=== PATIENT | female | born 1985 | race Caucasian/White ===

== ENCOUNTER 2018-07-15 21:57 | Emergency (ER) | payer OTHER, SELFPAY ==
[2018-07-15 22:07] VITALS: BP 98/65; PULSE 65; RESP 14; TEMP 36.1; O2SAT 95
[2018-07-15 22:38] LABS: Add Manual Diff / Slide Review NO; Basophils Absolute Auto 100 /uL (0-100); Basophils Percent Auto 0.7 % (0-2); Eosinophils Absolute Auto 100 /uL (0-450); Eosinophils Percent Auto 1.1 % (2-4); Hematocrit 39.2 % (36-46); Hemoglobin 13.1 g/dL (12.0-16.0); Lymphocytes Absolute Auto 2600 /uL (1100-4500); Lymphocytes Percent Auto 30.5 % (25-40); Mean Corpuscular HGB Conc 33.5 % (30-36); Mean Corpuscular Hemoglobin 31.5 PG (26-34); Mean Corpuscular Volume 94.1 fL (80-100); Monocytes Absolute Auto 800 /uL (0-900); Monocytes Percent Auto 8.8 % (3-14); Neutrophils Absolute Auto 5100 /uL (1500-7000); Neutrophils Percent Auto 58.9 % (50-75); Platelet Count 194 X10^3/uL (150-400); Red Blood Cell Count 4.17 X10^6/uL (4.0-5.2); Red Cell Distribution Width 12.6 % (11.6-14.8); White Blood Cell Count 8.6 X10^3/uL (4.5-11.0)
[2018-07-15 22:47] LABS: Alanine Aminotransferase 23 IU/L (9-52); Albumin 4.2 g/dL (3.5-5.0); Albumin Globulin Ratio 1.4 (1.0-2.8); Alkaline Phosphatase 85 U/L (38-126); Amylase 52 U/L (30-110); Aspartate Aminotransferase 68 IU/L (14-36); BUN Creatinine Ratio 13.8 (6-22); Blood Urea Nitrogen 11 mg/dL (7-17); Calcium 9.1 mg/dL (8.4-10.2); Carbon Dioxide 27 mmol/L (22-32); Chloride 101 mmol/L (98-107); Estimated Glomerular Filt Rate > 60.0 mL/min (>60); Globulin 2.9 g/dL (1.7-4.1); Glucose 104 mg/dL (70-100); HEMOLYSIS < 15 (0-50); Lipase 108 U/L (23-300); Potassium 3.9 mmol/L (3.4-5.1); Sodium 138 mmol/L (137-145); Total Protein 7.1 g/dL (6.3-8.2)
[2018-07-15] MEDS: HYDROMORPHONE 1 MG INJ IV (22:56)
[2018-07-15 22:57] VITALS: BP 92/53; PULSE 52; RESP 17; O2SAT 97
--- NOTE | 2018-07-16 00:58 | ED.ABDPAIN ---
HPI - Abdominal Pain General Chief Complaint: Abdominal Pain Stated Complaint: problems with galbladder Time Seen by Provider: 07/15/18 22:00 Source: patient and family Mode of arrival: ambulatory Limitations: no limitations History of Present Illness HPI narrative: 33-year-old female nonsmoker presents to the emergency department with recurrence of RUQ pain with N/V. No fever or chills. Worse with food and drink. Patient has been having episodes of epigastric pain for at least 1 year and has had multiple workups. She was recently referred to the [facility] medical group and had an MRCP which noted choledochal cysts and as a result she has been referred to a general surgeon at [facility] on Monday. Though her pain is been off and on for the better part of a year it has been terrible for the past 48 hours MD complaint: abdominal pain Pain Consistency: constant Location: RUQ Severity scale (1-10): 8 Quality: cramping and stabbing Radiation: none Relieving factors: nothing Exacerbating factors: nothing Associated symptoms: nausea and vomiting Related Data Allergies Allergy/AdvReac Type Severity Reaction Status Date / Time No Known Drug Allergies Allergy Verified 07/15/18 22:14 Review of Systems Constitutional Denies chills, Denies fever(s), Denies lethargy and Denies weakness Eyes Denies change in vision, Denies eye discharge, Denies irritation and Denies loss of vision ENT Ears, Nose, Mouth, and Throat: Denies change in voice, Denies neck pain and Denies sore throat Cardiovascular Denies chest pain, Denies irregular heart rhythm, Denies lightheadedness, Denies palpitations, Denies dyspnea, Denies dyspnea on exertion and Denies orthopnea Respiratory Denies cough, Denies dyspnea, Denies dyspnea on exertion and Denies wheezing Gastrointestinal Gastrointestinal: Reports abdominal pain, Denies change in bowel habits, Denies diarrhea, Reports nausea and Reports vomiting Genitourinary Denies hematuria, Denies flank pain, Denies urinary incontinence and Denies urinary urgency Musculoskeletal Denies neck pain Integumentary/Breasts Denies pruritus, Denies erythema, Denies rash and Denies wounds Neurologic Denies confusion, Denies loss of vision and Denies weakness Psychiatric Denies anxiety, Denies confusion, Denies depression, Denies homicidal ideation and Denies suicidal ideation Endocrine Denies palpitations Hematologic/Lymphatic Denies easy bruising Allergic/Immunologic Denies wheezing [facility] Social History Smoking Status: Current every day smoker Social History Smoking Status: Current every day smoker Exam Narrative Exam Narrative: GENERAL: 33-year-old female obviously quite uncomfortable, rubbing her upper abdomen HEAD: Atraumatic. Normocephalic. No temporal or scalp tenderness. EYES: Pupils equal round and reactive. Extraocular motions intact. No scleral icterus. No injection or drainage. ENT: Nose without bleeding, purulent drainage or septal hematoma. Throat without erythema, tonsillar hypertrophy or exudate. Uvula midline. Airway patent. NECK: Trachea midline. No JVD or lymphadenopathy. Supple, nontender, no meningeal signs. CARDIOVASCULAR: Regular rate and rhythm without murmurs, gallops, or rubs. RESPIRATORY: Clear to auscultation. Breath sounds equal bilaterally. No wheezes, rales, or rhonchi. GASTROINTESTINAL: Abdomen soft, tender epigastrium, nondistended. No hepato-splenomegaly, or palpable masses. No guarding. EXTREMITIES: No clubbing, cyanosis, or edema. No joint tenderness, effusion, or edema noted. BACK: Nontender without deformity or crepitance. No flank tenderness. NEURO: AOx3. SKIN: No rash or erythema. Initial Vital Signs Initial Vital Signs: Vital Signs Temperature 97.0 F L 07/15/18 22:07 Pulse Rate 65 07/15/18 22:07 Respiratory Rate 14 07/15/18 22:07 Blood Pressure 98/65 07/15/18 22:07 Pulse Oximetry 95 07/15/18 22:07 Course Orders Ordered: ED Orders 07/15/18 22:30 Amylase Stat Complete Blood Count AUTO DIFF Stat Comprehensive Metabolic Panel Stat Lipase Stat 07/16/18 01:09 US abdomen limited Stat Discontinued Medications Diphenhydramine HCl (Benadryl) 25 mg IV NOW ONE Stop: 07/16/18 03:12 Last Admin: 07/16/18 03:26 Dose: 25 mg Hydromorphone HCl (Dilaudid) 1 mg IV NOW ONE Stop: 07/15/18 22:51 Last Admin: 07/15/18 22:56 Dose: 1 mg Consultations Consultation #1: Called to GI at [facility]. They are able to access the records and informed me of the patient's underlying diagnosis choledochal cysts Consultation #2: Dr. Snider (Gen Surg) is happy to accept patient Vital Signs - 8 hr 07/15/18 22:57 07/16/18 01:12 Pulse Rate 52 L 54 L Respiratory Rate 17 16 Blood Pressure [Right Arm] 92/53 L Pulse Oximetry 97 96 MDM - Abdominal Pain Lab Data Result diagrams: 07/15/18 22:30 07/15/18 22:30 Lab Results 07/15/18 07/15/18 Range/Units 22:30 22:30 WBC 8.6 (4.5-11.0) X10^3/uL RBC 4.17 (4.0-5.2) X10^6/uL Hgb 13.1 (12.0-16.0) g/dL Hct 39.2 (36-46) % MCV 94.1 (80-100) fL MCH 31.5 (26-34) PG MCHC 33.5 (30-36) % RDW 12.6 (11.6-14.8) % Plt Count 194 (150-400) X10^3/uL Neut % (Auto) 58.9 (50-75) % Lymph % (Auto) 30.5 (25-40) % [place] % (Auto) 8.8 (3-14) % Eos % (Auto) 1.1 L (2-4) % Baso % (Auto) 0.7 (0-2) % Neut # (Auto) 5100 (9855-5191) /uL Lymph # (Auto) 2600 (9590-4598) /uL [place] # (Auto) 800 (0-900) /uL Eos # (Auto) 100 (0-450) /uL Baso # (Auto) 100 (0-100) /uL Sodium 138 (137-145) mmol/L Potassium 3.9 (3.4-5.1) mmol/L Chloride 101 (98-107) mmol/L Carbon Dioxide 27 (22-32) mmol/L BUN 11 (7-17) mg/dL Creatinine 0.80 (0.52-1.04) mg/dL Estimated GFR > 60.0 (>60) mL/min BUN/Creatinine Ratio 13.8 (6-22) Glucose 104 H (70-100) mg/dL Calcium 9.1 (8.4-10.2) mg/dL Total Bilirubin 1.0 (0.2-1.3) mg/dL AST 68 H (14-36) IU/L ALT 23 (9-52) IU/L Alkaline Phosphatase 85 (38-126) U/L Total Protein 7.1 (6.3-8.2) g/dL Albumin 4.2 (3.5-5.0) g/dL Globulin 2.9 (1.7-4.1) g/dL Albumin/Globulin Ratio 1.4 (1.0-2.8) Amylase 52 (30-110) U/L Lipase 108 (23-300) U/L Point of care testing: Point of Care Testing Test Results Negative Urine Dip Bedside Urine Glucose Negative Bedside Urine Bilirubin - Negative Bedside Urine Ketone - Negative Urine Specific [place] 1.015 Bedside Urine Occult Blood - Negative Bedside Urine pH 7.0 Bedside Urine Protein - Negative Bedside Urine Urobilinogen +/- 1mg Bedside Urine Nitrite - Negative Bedside Urine Leukocytes - Negative Esterase Discharge Plan Departure Patient Disposition: [facility] Clinical Impression: Choledochal cyst, Intractable abdominal pain
--- NOTE | 2018-07-16 01:09 | DI.US.S_ITS ---
PROCEDURE: US ABDOMEN LIMITED INDICATIONS: RIGHT UPPER QUADRANT PAIN TECHNIQUE: Real-time focused scanning was performed of the abdomen, with image documentation. COMPARISON: None. FINDINGS: Gallbladder is distended. Multiple gallstones are identified. No definite gallbladder wall thickening. No definite pericholecystic fluid. Probable choledochal cyst measuring up to 1.4 cm is noted possibly involving the common hepatic duct. The right and left intra-hepatic ducts are mildly dilated to 3 mm and 6 mm, respectively. Common bile duct measures approximately 6 mm. No sonographic Hamm sign. The visualized liver is normal. IMPRESSION: 1. Cholelithiasis without definite evidence of cholecystitis. 2. 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 3. Mild proximal right and left intrahepatic ductal dilatation. Recommend correlation with laboratory data to exclude biliary obstruction. Dictated by: Della Jernigan MD, PhD on 07/16/2018 at 10:01 Approved by: Della Jernigan MD, PhD on 07/16/2018 at 10:05
[2018-07-16 01:12] VITALS: PULSE 54; RESP 16; O2SAT 96
--- NOTE | 2018-07-16 01:35 | ED_ITS ---
HPI - Abdominal Pain General Chief Complaint: Abdominal Pain Stated Complaint: problems with galbladder Time Seen by Provider: 07/15/18 22:00 Source: patient and family Mode of arrival: ambulatory Limitations: no limitations History of Present Illness HPI narrative: 33-year-old female nonsmoker presents to the emergency department with recurrence of RUQ pain with N/V. No fever or chills. Worse with food and drink. Patient has been having episodes of epigastric pain for at least 1 year and has had multiple workups. She was recently referred to the [facility] medical group and had an MRCP which noted choledochal cysts and as a result she has been referred to a general surgeon at [facility] on Monday. Though her pain is been off and on for the better part of a year it has been terrible for the past 48 hours MD complaint: abdominal pain Pain Consistency: constant Location: RUQ Severity scale (1-10): 8 Quality: cramping and stabbing Radiation: none Relieving factors: nothing Exacerbating factors: nothing Associated symptoms: nausea and vomiting Related Data Allergies Allergy/AdvReac Type Severity Reaction Status Date / Time No Known Drug Allergies Allergy Verified 07/15/18 22:14 Review of Systems Constitutional Denies chills, Denies fever(s), Denies lethargy and Denies weakness Eyes Denies change in vision, Denies eye discharge, Denies irritation and Denies loss of vision ENT Ears, Nose, Mouth, and Throat: Denies change in voice, Denies neck pain and Denies sore throat Cardiovascular Denies chest pain, Denies irregular heart rhythm, Denies lightheadedness, Denies palpitations, Denies dyspnea, Denies dyspnea on exertion and Denies orthopnea Respiratory Denies cough, Denies dyspnea, Denies dyspnea on exertion and Denies wheezing Gastrointestinal Gastrointestinal: Reports abdominal pain, Denies change in bowel habits, Denies diarrhea, Reports nausea and Reports vomiting Genitourinary Denies hematuria, Denies flank pain, Denies urinary incontinence and Denies urinary urgency Musculoskeletal Denies neck pain Integumentary/Breasts Denies pruritus, Denies erythema, Denies rash and Denies wounds Neurologic Denies confusion, Denies loss of vision and Denies weakness Psychiatric Denies anxiety, Denies confusion, Denies depression, Denies homicidal ideation and Denies suicidal ideation Endocrine Denies palpitations Hematologic/Lymphatic Denies easy bruising Allergic/Immunologic Denies wheezing [facility] Social History Smoking Status: Current every day smoker Social History Smoking Status: Current every day smoker Exam Narrative Exam Narrative: GENERAL: 33-year-old female obviously quite uncomfortable, rubbing her upper abdomen HEAD: Atraumatic. Normocephalic. No temporal or scalp tenderness. EYES: Pupils equal round and reactive. Extraocular motions intact. No scleral icterus. No injection or drainage. ENT: Nose without bleeding, purulent drainage or septal hematoma. Throat without erythema, tonsillar hypertrophy or exudate. Uvula midline. Airway patent. NECK: Trachea midline. No JVD or lymphadenopathy. Supple, nontender, no meningeal signs. CARDIOVASCULAR: Regular rate and rhythm without murmurs, gallops, or rubs. RESPIRATORY: Clear to auscultation. Breath sounds equal bilaterally. No wheezes, rales, or rhonchi. GASTROINTESTINAL: Abdomen soft, tender epigastrium, nondistended. No hepato- splenomegaly, or palpable masses. No guarding. EXTREMITIES: No clubbing, cyanosis, or edema. No joint tenderness, effusion, or edema noted. BACK: Nontender without deformity or crepitance. No flank tenderness. NEURO: AOx3. SKIN: No rash or erythema. Initial Vital Signs Initial Vital Signs: Vital Signs Temperature 97.0 F L 07/15/18 22:07 Pulse Rate 65 07/15/18 22:07 Respiratory Rate 14 07/15/18 22:07 Blood Pressure 98/65 07/15/18 22:07 Pulse Oximetry 95 07/15/18 22:07 Course Orders Ordered: ED Orders 07/15/18 22:30 Amylase Stat Complete Blood Count AUTO DIFF Stat Comprehensive Metabolic Panel Stat Lipase Stat 07/16/18 01:09 US abdomen limited Stat Discontinued Medications Diphenhydramine HCl (Benadryl) 25 mg IV NOW ONE Stop: 07/16/18 03:12 Last Admin: 07/16/18 03:26 Dose: 25 mg Hydromorphone HCl (Dilaudid) 1 mg IV NOW ONE Stop: 07/15/18 22:51 Last Admin: 07/15/18 22:56 Dose: 1 mg Consultations Consultation #1: Called to GI at [facility]. They are able to access the records and informed me of the patient's underlying diagnosis choledochal cysts Consultation #2: Dr. Snider (Gen Surg) is happy to accept patient Vital Signs - 8 hr 07/15/18 22:57 07/16/18 01:12 Pulse Rate 52 L 54 L Respiratory Rate 17 16 Blood Pressure [Right Arm] 92/53 L Pulse Oximetry 97 96 MDM - Abdominal Pain Lab Data Result diagrams: 07/15/18 22:30 07/15/18 22:30 Lab Results 07/15/18 07/15/18 Range/Units 22:30 22:30 WBC 8.6 (4.5-11.0) X10^3/uL RBC 4.17 (4.0-5.2) X10^6/uL Hgb 13.1 (12.0-16.0) g/dL Hct 39.2 (36-46) % MCV 94.1 (80-100) fL MCH 31.5 (26-34) PG MCHC 33.5 (30-36) % RDW 12.6 (11.6-14.8) % Plt Count 194 (150-400) X10^3/uL Neut % (Auto) 58.9 (50-75) % Lymph % (Auto) 30.5 (25-40) % [place] % (Auto) 8.8 (3-14) % Eos % (Auto) 1.1 L (2-4) % Baso % (Auto) 0.7 (0-2) % Neut # (Auto) 5100 (0294-1735) /uL Lymph # (Auto) 2600 (4123-2742) /uL [place] # (Auto) 800 (0-900) /uL Eos # (Auto) 100 (0-450) /uL Baso # (Auto) 100 (0-100) /uL Sodium 138 (137-145) mmol/L Potassium 3.9 (3.4-5.1) mmol/L Chloride 101 (98-107) mmol/L Carbon Dioxide 27 (22-32) mmol/L BUN 11 (7-17) mg/dL Creatinine 0.80 (0.52-1.04) mg/dL Estimated GFR > 60.0 (>60) mL/min BUN/Creatinine Ratio 13.8 (6-22) Glucose 104 H (70-100) mg/dL Calcium 9.1 (8.4-10.2) mg/dL Total Bilirubin 1.0 (0.2-1.3) mg/dL AST 68 H (14-36) IU/L ALT 23 (9-52) IU/L Alkaline Phosphatase 85 (38-126) U/L Total Protein 7.1 (6.3-8.2) g/dL Albumin 4.2 (3.5-5.0) g/dL Globulin 2.9 (1.7-4.1) g/dL Albumin/Globulin Ratio 1.4 (1.0-2.8) Amylase 52 (30-110) U/L Lipase 108 (23-300) U/L Point of care testing: Point of Care Testing Test Results Negative Urine Dip Bedside Urine Glucose Negative Bedside Urine Bilirubin - Negative Bedside Urine Ketone - Negative Urine Specific [place] 1.015 Bedside Urine Occult Blood - Negative Bedside Urine pH 7.0 Bedside Urine Protein - Negative Bedside Urine Urobilinogen +/- 1mg Bedside Urine Nitrite - Negative Bedside Urine Leukocytes - Negative Esterase Discharge Plan Departure Patient Disposition: [facility] Clinical Impression: Choledochal cyst, Intractable abdominal pain
[2018-07-16] MEDS: diphenhydrAMINE 50 MG/ML VIAL 25 MG IV (03:26)
[2018-07-16 07:21] VITALS: BP 86/41; PULSE 64; RESP 15; O2SAT 98
[2018-07-16 08:36] VITALS: BP 98/53; PULSE 64; RESP 15; O2SAT 95
[2018-07-16] MEDS: HYDROMORPHONE 1 MG INJ IV (08:58)
--- NOTE | 2018-07-16 09:34 | PC.NURSE ---
Confirmed report had been called to VM: Pt recieved dilaudid 1mg prior to leaving ED.
== END 2018-07-16 09:20 | disposition short-term general hospital (02) ==
PROVIDERS: Nurse Practitioner Family; Emergency Provider Emergency Medicine
DX: Q44.4 Choledochal cyst (principal); R11.2 Nausea with vomiting, unspecified; R10.11 Right upper quadrant pain
CPT/HCPCS: 76705; 80053; 81003; 81025; 82150; 83690; 85025; 96374; 96375; 96376; 99283; 99284; J1170; J1200

== ENCOUNTER 2018-07-31 19:49 | Emergency (ER) | payer OTHER, SELFPAY ==
[2018-07-31 20:10] VITALS: BP 113/71; PULSE 71; RESP 20; TEMP 36.2; O2SAT 100
--- NOTE | 2018-07-31 20:43 | ED.ABDPAIN ---
HPI - Abdominal Pain <LESLEY Saenz - Last Filed: 07/31/18 23:36> General Chief Complaint: Abdominal Pain Stated Complaint: STATES SURGICAL COMPLICATIONS Time Seen by Provider: 07/31/18 20:17 Source: patient Mode of arrival: ambulatory Limitations: no limitations History of Present Illness HPI narrative: 33-year-old female with a recent cholecystectomy due to a large cyst, presents to the emergency department after being discharged from [facility] on 07/23/2018 after surgery. Complains of 10 out 10 non radiating epigastric pressure and cramping that is intermittent, episodes occurred more than 20 times a day and last 1-45 minutes. Episodes, severity of pain, and frequency have increased over the past few days. She has had this pain while in the hospital and she was told his IBS, she saw her surgeon today who thought this pain occurs, she was given esomeprazole which has helped. Pain is not made worse or is not better with eating, movement, resting, or oxycodone. Denies nausea, vomiting, change in bowel patterns, chest pain, shortness of breath, dizziness or dysuria. MD complaint: abdominal pain Onset (ago): day(s) Pain Consistency: intermittent Location: epigastric Severity: severe Severity scale (1-10): 10 Quality: cramping and fullness Radiation: none Migration to: no migration Relieving factors: nothing Exacerbating factors: nothing Associated symptoms: denies other symptoms Related Data Home Medications Medication Instructions Recorded Confirmed fluoxetine 40 mg PO DAILY 07/16/18 07/16/18 Allergies Allergy/AdvReac Type Severity Reaction Status Date / Time No Known Drug Allergies Allergy Verified 07/15/18 22:14 Review of Systems <LESLEY Saenz - Last Filed: 07/31/18 23:36> Constitutional Denies chills, Denies fever(s), Denies lethargy and Denies weakness Eyes Denies loss of vision ENT Ears, Nose, Mouth, and Throat: Denies change in voice, Denies neck pain and Denies sore throat Cardiovascular Denies chest pain, Denies irregular heart rhythm, Denies lightheadedness, Denies palpitations, Denies dyspnea, Denies dyspnea on exertion and Denies orthopnea Respiratory Denies cough, Denies dyspnea, Denies dyspnea on exertion and Denies wheezing Gastrointestinal Gastrointestinal: Reports abdominal pain, Denies melena, Reports bloating, Denies change in bowel habits, Denies constipation, Denies early satiety, Reports dyspepsia, Denies diarrhea, Denies nausea and Denies vomiting Genitourinary Denies hematuria, Denies flank pain, Denies urinary incontinence and Denies urinary urgency Musculoskeletal Denies neck pain Integumentary/Breasts Denies pruritus, Denies erythema, Denies rash and Denies wounds Neurologic Denies loss of vision and Denies weakness Endocrine Denies palpitations Hematologic/Lymphatic Denies easy bruising Allergic/Immunologic Denies wheezing PFSH <LESLEY Saenz - Last Filed: 07/31/18 23:36> Surgical History History of cholecystectomy (Chronic) Social History Smoking Status: Current every day smoker Social History Smoking Status: Current every day smoker Exam <LESLEY Saezn - Last Filed: 07/31/18 23:36> Initial Vital Signs Initial Vital Signs: Vital Signs Temperature 97.1 F L 07/31/18 20:10 Pulse Rate 71 07/31/18 20:10 Respiratory Rate 20 07/31/18 20:10 Blood Pressure 113/71 07/31/18 20:10 Pulse Oximetry 100 07/31/18 20:10 Const General: cooperative and well developed Nutritional Appearance: well nourished Orientation: alert, awake, oriented x3 and not confused [facility] Head: normocephalic Nose: external nose normal Mouth: oral mucosae normal Eyes General: appearance normal, both eyes and all related structures Eyelids: eyelids normal Conjunctivae: conjunctivae normal Sclera: sclerae normal Pupils: PERRL EOM: EOM intact bilaterally Neck Neck: normal visual inspection, trachea midline and No JVD Lymphatic: No lymphedema Chest Chest: normal inspection of the chest Resp Effort & Inspection: normal respiratory effort, able to speak in complete sentences, no respiratory distress and no use of accessory muscles Auscultation: clear to auscultation bilaterally, no rales, no rhonchi and no wheezes Cardio Rate: regular rate Rhythm: regular rhythm Heart Sounds: no click, no gallops, no murmurs and no rubs Pulses: normal peripheral pulses GI Inspection: non-distended Palpation: soft, no hepatosplenomegaly, No guarding and tender (Slightly tender to epigastric area. ) Percussion: normal to percussion Auscultation: normal bowel sounds Other: During exam, patient is seen wincing in pain multiple times as she stated she was experiencing intermittent waves of pressure. Incision right stems across RUQ across the midline, incision is intact, no swelling, discharge, or erythema. Back/Spine/Pelvis Back: No CVA tenderness Cervical Spine: cervical ROM normal Thoracic/Lumbar Spine: thoracic and lumbar spine normal to inspection Skin General: no rashes or lesions noted, No jaundice and No petechiae Neuro General: alert, oriented x3, gait normal and no focal motor deficits Speech: speech normal Extrem General: full ROM, no clubbing, cyanosis or edema, no pedal edema and no calf tenderness Psych Appearance: well kempt Mental Status: mental status grossly normal Attitude: cooperative Thought Content: normal and suicidality Judgment: judgment good <Amadou Tineo DO - Last Filed: 07/31/18 23:49> Initial Vital Signs Initial Vital Signs: Vital Signs Temperature 97.1 F L 07/31/18 20:10 Pulse Rate 71 07/31/18 20:10 Respiratory Rate 20 07/31/18 20:10 Blood Pressure 113/71 07/31/18 20:10 Pulse Oximetry 100 07/31/18 20:10 Course <LESLEY Saenz - Last Filed: 07/31/18 23:36> Course Narrative: Patient tolerated leaf of symptoms after GI cocktail, was given ranitidine before discharge to allow for nighttime relief.. Orders Ordered: ED Orders 07/31/18 20:50 Amylase Stat Complete Blood Count AUTO DIFF Stat Comprehensive Metabolic Panel Stat Lipase Stat 07/31/18 21:19 CT abdomen pelvis w con Stat Discontinued Medications Al Hydrox/Mg Hydrox/Simethicone 20 ml/ Lidocaine HCl 15 ml 0 ml PO NOW ONE Stop: 07/31/18 22:27 Last Admin: 07/31/18 22:27 Dose: 45 ml Sodium Chloride (Normal Saline 0.9%) 1,000 mls @ 150 mls/hr IV CONT FLOR Last Infusion: 07/31/18 23:10 Dose: 150 mls/hr Admin: 07/31/18 20:55 Dose: 150 mls/hr Metoclopramide HCl (Reglan) 10 mg PO NOW ONE Stop: 07/31/18 20:43 Last Admin: 07/31/18 21:03 Dose: 10 mg Morphine Sulfate (Morphine) 2 mg IV NOW ONE Stop: 07/31/18 21:55 Last Admin: 07/31/18 22:02 Dose: 2 mg Ranitidine HCl (Zantac) 150 mg PO NOW ONE Stop: 07/31/18 22:51 Last Admin: 07/31/18 22:59 Dose: 150 mg Consultations Consultation #1: Staffed patient with Dr. Tineo. Time: 20:45 Consultation #2: Consultation the patients Dr. Agatha Perry before ordering tests, and again with the test results. Time: 10:00 Vital Signs - 8 hr 07/31/18 20:10 07/31/18 22:50 Temperature 97.1 F L Pulse Rate 71 67 Respiratory Rate 20 14 Blood Pressure 113/71 Blood Pressure [Right Arm] 112/57 L Pulse Oximetry 100 100 <Amadou Tineo, - Last Filed: 07/31/18 23:49> Orders Ordered: ED Orders 07/31/18 20:50 Amylase Stat Complete Blood Count AUTO DIFF Stat Comprehensive Metabolic Panel Stat Lipase Stat 07/31/18 21:19 CT abdomen pelvis w con Stat Discontinued Medications Al Hydrox/Mg Hydrox/Simethicone 20 ml/ Lidocaine HCl 15 ml 0 ml PO NOW ONE Stop: 07/31/18 22:27 Last Admin: 07/31/18 22:27 Dose: 45 ml Sodium Chloride (Normal Saline 0.9%) 1,000 mls @ 150 mls/hr IV CONT FLOR Last Infusion: 07/31/18 23:10 Dose: 150 mls/hr Admin: 07/31/18 20:55 Dose: 150 mls/hr Metoclopramide HCl (Reglan) 10 mg PO NOW ONE Stop: 07/31/18 20:43 Last Admin: 07/31/18 21:03 Dose: 10 mg Morphine Sulfate (Morphine) 2 mg IV NOW ONE Stop: 07/31/18 21:55 Last Admin: 07/31/18 22:02 Dose: 2 mg Ranitidine HCl (Zantac) 150 mg PO NOW ONE Stop: 07/31/18 22:51 Last Admin: 07/31/18 22:59 Dose: 150 mg Vital Signs - 8 hr 07/31/18 20:10 07/31/18 22:50 Temperature 97.1 F L Pulse Rate 71 67 Respiratory Rate 20 14 Blood Pressure 113/71 Blood Pressure [Right Arm] 112/57 L Pulse Oximetry 100 100 MDM - Abdominal Pain <KELLY SaenzP - Last Filed: 07/31/18 23:36> Medical Records Attestation: I reviewed the patient's medical records. Lab Data Attestation: I reviewed the patient's lab results. Result diagrams: 07/31/18 20:50 07/31/18 20:50 Lab Results 07/31/18 07/31/18 07/31/18 Range/Units 20:50 20:50 20:50 WBC 7.9 (4.5-11.0) X10^3/uL RBC 3.95 L (4.0-5.2) X10^6/uL Hgb 12.5 (12.0-16.0) g/dL Hct 36.9 (36-46) % MCV 93.3 (80-100) fL MCH 31.6 (26-34) PG MCHC 33.9 (30-36) % RDW 13.2 (11.6-14.8) % Plt Count 269 (150-400) X10^3/uL Neut % (Auto) 59.6 (50-75) % Lymph % (Auto) 28.2 (25-40) % Cooper % (Auto) 8.8 (3-14) % Eos % (Auto) 2.5 (2-4) % Baso % (Auto) 0.9 (0-2) % Neut # (Auto) 4700 (4257-6627) /uL Lymph # (Auto) 2200 (5299-6879) /uL Cooper # (Auto) 700 (0-900) /uL Eos # (Auto) 200 (0-450) /uL Baso # (Auto) 100 (0-100) /uL Sodium 140 (137-145) mmol/L Potassium 4.9 (3.4-5.1) mmol/L Chloride 101 (98-107) mmol/L Carbon Dioxide 32 (22-32) mmol/L BUN 13 (7-17) mg/dL Creatinine 0.80 (0.52-1.04) mg/dL Estimated GFR > 60.0 (>60) mL/min BUN/Creatinine Ratio 16.3 (6-22) Glucose 91 (70-100) mg/dL Calcium 9.5 (8.4-10.2) mg/dL Total Bilirubin 0.3 (0.2-1.3) mg/dL AST 23 (14-36) IU/L ALT 15 (9-52) IU/L Alkaline Phosphatase 91 (38-126) U/L Total Protein 7.3 (6.3-8.2) g/dL Albumin 4.2 (3.5-5.0) g/dL Globulin 3.1 (1.7-4.1) g/dL Albumin/Globulin Ratio 1.4 (1.0-2.8) Amylase 67 (30-110) U/L Lipase 79 (23-300) U/L Imaging Data CT scan - abdomen: Radiologist's impression: [address] [address] [address] Scan Report Signed Patient: Daniela Vee [facility]#: [id number] : 1985Acct:[id number] Age/Sex: 33 / FDate of Service: 07/31/18 Loc: ED Accession Number: [id number] Procedure: CT abdomen pelvis w con Ordering Provider: Mariam Blanchard PROCEDURE: CT ABDOMEN PELVIS W CON INDICATIONS: Post-op cholecystectomy, severe epigastric pain. TECHNIQUE: After the administration of intravenous contrast, 5 mm thick sections acquired from the diaphragm to the symphysis. 5 mm coronal and sagittal reformats were acquired. For radiation dose reduction, the following was used: automated exposure control, adjustment of mA and/or kV according to patient size. COMPARISON: , , ABDOMEN LIMITED, 07/16/2018, 1:29. FINDINGS: Image quality: Excellent. ABDOMEN: Lung bases: Lung bases are clear. Heart size is normal. Solid organs: Liver is normal in size and enhancement. Note is made of mild edema along the portal triads bilaterally, slightly greater on the right than the left. Gas within what appears to be the bile ducts is present predominantly at the left medial and lateral hepatic segments. The portal veins and hepatic arteries appear patent. Gallbladder has been resected, and surgical clips are seen at the right upper quadrant. What appears to be a gas-filled possible duodenal diverticulum is relatively small, noninflamed, and measures up to 1.4 cm in diameter. This is near the duodenal bulb. Biliary system is non dilated. Pancreas enhances normally. Spleen is normal in size and enhancement. No adrenal nodules. Kidneys demonstrate normal size and enhancement, without hydronephrosis. Peritoneum and bowel: Bowel loops demonstrate normal wall thickness and caliber. No free fluid or air. Nodes and vessels: No retroperitoneal or mesenteric adenopathy by size criteria. Aorta and inferior vena cava are normal in size. Miscellaneous: No ventral hernias. PELVIS: Genitourinary: Bladder wall thickness is normal. Miscellaneous: No inguinal hernias or adenopathy. Bones: No suspicious bony lesions. No vertebral body compression fractures. IMPRESSION: Cholecystectomy, mild postoperative edema along the gallbladder fossa region. Mild pneumobilia, mild edema involves the portal triads within the right hepatic lobe more prominently than on the left. No hemorrhage is seen, no bile leak is suspected. A definite source of severe abdominal pain postoperatively is not found. Dictated by: Isiah Levy M.D. on 07/31/2018 at 21:59 Approved by: Isiah Levy M.D. on 07/31/2018 at 22:05 [facility] Narrative Medical decision making narrative: I suspect that patient's symptoms are caused from acid reflux, due to normal labs, and no acute changes on the CT, as well as relief of symptoms with GI cocktail. Discussed findings with Dr. Snider at [facility] who agreed with discharge plan of care. Strict return precautions given. Follow up instructions discussed. <Amadou Tineo, - Last Filed: 07/31/18 23:49> Lab Data Lab Results 07/31/18 07/31/18 07/31/18 Range/Units 20:50 20:50 20:50 WBC 7.9 (4.5-11.0) X10^3/uL RBC 3.95 L (4.0-5.2) X10^6/uL Hgb 12.5 (12.0-16.0) g/dL Hct 36.9 (36-46) % MCV 93.3 (80-100) fL MCH 31.6 (26-34) PG MCHC 33.9 (30-36) % RDW 13.2 (11.6-14.8) % Plt Count 269 (150-400) X10^3/uL Neut % (Auto) 59.6 (50-75) % Lymph % (Auto) 28.2 (25-40) % Cooper % (Auto) 8.8 (3-14) % Eos % (Auto) 2.5 (2-4) % Baso % (Auto) 0.9 (0-2) % Neut # (Auto) 4700 (2416-9994) /uL Lymph # (Auto) 2200 (7272-2709) /uL Cooper # (Auto) 700 (0-900) /uL Eos # (Auto) 200 (0-450) /uL Baso # (Auto) 100 (0-100) /uL Sodium 140 (137-145) mmol/L Potassium 4.9 (3.4-5.1) mmol/L Chloride 101 (98-107) mmol/L Carbon Dioxide 32 (22-32) mmol/L BUN 13 (7-17) mg/dL Creatinine 0.80 (0.52-1.04) mg/dL Estimated GFR > 60.0 (>60) mL/min BUN/Creatinine Ratio 16.3 (6-22) Glucose 91 (70-100) mg/dL Calcium 9.5 (8.4-10.2) mg/dL Total Bilirubin 0.3 (0.2-1.3) mg/dL AST 23 (14-36) IU/L ALT 15 (9-52) IU/L Alkaline Phosphatase 91 (38-126) U/L Total Protein 7.3 (6.3-8.2) g/dL Albumin 4.2 (3.5-5.0) g/dL Globulin 3.1 (1.7-4.1) g/dL Albumin/Globulin Ratio 1.4 (1.0-2.8) Amylase 67 (30-110) U/L Lipase 79 (23-300) U/L Discharge Plan Departure Patient Disposition: Home Clinical Impression: Acid reflux Qualifiers: Esophagitis presence: esophagitis presence not specified Qualified Code(s): K21.9 - Gastro-esophageal reflux disease without esophagitis Discharge Date/Time: 07/31/18 23:10 Interventions: ED Discharge Assessment Last Done: 07/31/18 23:09 Instructions: DI for Gastroesophageal Reflux Disease (GERD) Activity Restrictions/Additional Instructions: Thank you for the entrusting me with your care today. As discussed, your labs are normal and your CT showed inflammation that is normal after surgery but no acute findings for your epigastric pain. After talking with the surgeon, we think the pain may be caused from acid reflux. It takes a while for the esomeprazole to work. Please continue to take this as directed. You may take ranitidine 150 mg 2 times a day as well as TUMS as needed for pain, these medications are [id number].. Decrease intake of chocolate, caffeine, and spicy foods as this could aggravate her symptoms. I recommend scheduling a follow-up appointment with your surgeon in the coming week. Prescriptions: No Action fluoxetine 40 mg capsule 40 mg PO DAILY RF: 0 <Amadou Tineo DO - Last Filed: 07/31/18 23:49> Cosign ED Attending [place] Attestation: I was available for consultation during this patient's emergency department encounter
--- NOTE | 2018-07-31 20:49 | ED_ITS ---
HPI - Abdominal Pain <LESLEY Saenz - Last Filed: 07/31/18 23:36> General Chief Complaint: Abdominal Pain Stated Complaint: STATES SURGICAL COMPLICATIONS Time Seen by Provider: 07/31/18 20:17 Source: patient Mode of arrival: ambulatory Limitations: no limitations History of Present Illness HPI narrative: 33-year-old female with a recent cholecystectomy due to a large cyst, presents to the emergency department after being discharged from [facility] on 07/23/2018 after surgery. Complains of 10 out 10 non radiating epigastric pressure and cramping that is intermittent, episodes occurred more than 20 times a day and last 1-45 minutes. Episodes, severity of pain, and frequency have increased over the past few days. She has had this pain while in the hospital and she was told his IBS, she saw her surgeon today who thought this pain occurs, she was given esomeprazole which has helped. Pain is not made worse or is not better with eating, movement, resting, or oxycodone. Denies nausea, vomiting, change in bowel patterns, chest pain, shortness of breath, dizziness or dysuria. MD complaint: abdominal pain Onset (ago): day(s) Pain Consistency: intermittent Location: epigastric Severity: severe Severity scale (1-10): 10 Quality: cramping and fullness Radiation: none Migration to: no migration Relieving factors: nothing Exacerbating factors: nothing Associated symptoms: denies other symptoms Related Data Home Medications Medication Instructions Recorded Confirmed fluoxetine 40 mg PO DAILY 07/16/18 07/16/18 Allergies Allergy/AdvReac Type Severity Reaction Status Date / Time No Known Drug Allergies Allergy Verified 07/15/18 22:14 Review of Systems <LESLEY Saenz - Last Filed: 07/31/18 23:36> Constitutional Denies chills, Denies fever(s), Denies lethargy and Denies weakness Eyes Denies loss of vision ENT Ears, Nose, Mouth, and Throat: Denies change in voice, Denies neck pain and Denies sore throat Cardiovascular Denies chest pain, Denies irregular heart rhythm, Denies lightheadedness, Denies palpitations, Denies dyspnea, Denies dyspnea on exertion and Denies orthopnea Respiratory Denies cough, Denies dyspnea, Denies dyspnea on exertion and Denies wheezing Gastrointestinal Gastrointestinal: Reports abdominal pain, Denies melena, Reports bloating, Denies change in bowel habits, Denies constipation, Denies early satiety, Reports dyspepsia, Denies diarrhea, Denies nausea and Denies vomiting Genitourinary Denies hematuria, Denies flank pain, Denies urinary incontinence and Denies u rinary urgency Musculoskeletal Denies neck pain Integumentary/Breasts Denies pruritus, Denies erythema, Denies rash and Denies wounds Neurologic Denies loss of vision and Denies weakness Endocrine Denies palpitations Hematologic/Lymphatic Denies easy bruising Allergic/Immunologic Denies wheezing PFSH <LESLEY Saenz - Last Filed: 07/31/18 23:36> Surgical History History of cholecystectomy (Chronic) Social History Smoking Status: Current every day smoker Social History Smoking Status: Current every day smoker Exam <LESLEY Saenz - Last Filed: 07/31/18 23:36> Initial Vital Signs Initial Vital Signs: Vital Signs Temperature 97.1 F L 07/31/18 20:10 Pulse Rate 71 07/31/18 20:10 Respiratory Rate 20 07/31/18 20:10 Blood Pressure 113/71 07/31/18 20:10 Pulse Oximetry 100 07/31/18 20:10 Const General: cooperative and well developed Nutritional Appearance: well nourished Orientation: alert, awake, oriented x3 and not confused [facility] Head: normocephalic Nose: external nose normal Mouth: oral mucosae normal Eyes General: appearance normal, both eyes and all related structures Eyelids: eyelids normal Conjunctivae: conjunctivae normal Sclera: sclerae normal Pupils: PERRL EOM: EOM intact bilaterally Neck Neck: normal visual inspection, trachea midline and No JVD Lymphatic: No lymphedema Chest Chest: normal inspection of the chest Resp Effort & Inspection: normal respiratory effort, able to speak in complete sentences, no respiratory distress and no use of accessory muscles Auscultation: clear to auscultation bilaterally, no rales, no rhonchi and no wheezes Cardio Rate: regular rate Rhythm: regular rhythm Heart Sounds: no click, no gallops, no murmurs and no rubs Pulses: normal peripheral pulses GI Inspection: non-distended Palpation: soft, no hepatosplenomegaly, No guarding and tender (Slightly tender to epigastric area. ) Percussion: normal to percussion Auscultation: normal bowel sounds Other: During exam, patient is seen wincing in pain multiple times as she stated she was experiencing intermittent waves of pressure. Incision right stems across RUQ across the midline, incision is intact, no swelling, discharge, or erythema. Back/Spine/Pelvis Back: No CVA tenderness Cervical Spine: cervical ROM normal Thoracic/Lumbar Spine: thoracic and lumbar spine normal to inspection Skin General: no rashes or lesions noted, No jaundice and No petechiae Neuro General: alert, oriented x3, gait normal and no focal motor deficits Speech: speech normal Extrem General: full ROM, no clubbing, cyanosis or edema, no pedal edema and no calf tenderness Psych Appearance: well kempt Mental Status: mental status grossly normal Attitude: cooperative Thought Content: normal and suicidality Judgment: judgment good <Amadou Tineo DO - Last Filed: 07/31/18 23:49> Initial Vital Signs Initial Vital Signs: Vital Signs Temperature 97.1 F L 07/31/18 20:10 Pulse Rate 71 07/31/18 20:10 Respiratory Rate 20 07/31/18 20:10 Blood Pressure 113/71 07/31/18 20:10 Pulse Oximetry 100 07/31/18 20:10 Course <LESLEY Saenz - Last Filed: 07/31/18 23:36> Course Narrative: Patient tolerated leaf of symptoms after GI cocktail, was given ranitidine before discharge to allow for nighttime relief.. Orders Ordered: ED Orders 07/31/18 20:50 Amylase Stat Complete Blood Count AUTO DIFF Stat Comprehensive Metabolic Panel Stat Lipase Stat 07/31/18 21:19 CT abdomen pelvis w con Stat Discontinued Medications Al Hydrox/Mg Hydrox/Simethicone 20 ml/ Lidocaine HCl 15 ml 0 ml PO NOW ONE Stop: 07/31/18 22:27 Last Admin: 07/31/18 22:27 Dose: 45 ml Sodium Chloride (Normal Saline 0.9%) 1,000 mls @ 150 mls/hr IV CONT FLOR Last Infusion: 07/31/18 23:10 Dose: 150 mls/hr Admin: 07/31/18 20:55 Dose: 150 mls/hr Metoclopramide HCl (Reglan) 10 mg PO NOW ONE Stop: 07/31/18 20:43 Last Admin: 07/31/18 21:03 Dose: 10 mg Morphine Sulfate (Morphine) 2 mg IV NOW ONE Stop: 07/31/18 21:55 Last Admin: 07/31/18 22:02 Dose: 2 mg Ranitidine HCl (Zantac) 150 mg PO NOW ONE Stop: 07/31/18 22:51 Last Admin: 07/31/18 22:59 Dose: 150 mg Consultations Consultation #1: Staffed patient with Dr. Tineo. Time: 20:45 Consultation #2: Consultation the patients Dr. Agatha Perry before ordering tests, and again with the test results. Time: 10:00 Vital Signs - 8 hr 07/31/18 20:10 07/31/18 22:50 Temperature 97.1 F L Pulse Rate 71 67 Respiratory Rate 20 14 Blood Pressure 113/71 Blood Pressure [Right Arm] 112/57 L Pulse Oximetry 100 100 <Amadou Tineo, DO - Last Filed: 07/31/18 23:49> Orders Ordered: ED Orders 07/31/18 20:50 Amylase Stat Complete Blood Count AUTO DIFF Stat Comprehensive Metabolic Panel Stat Lipase Stat 07/31/18 21:19 CT abdomen pelvis w con Stat Discontinued Medications Al Hydrox/Mg Hydrox/Simethicone 20 ml/ Lidocaine HCl 15 ml 0 ml PO NOW ONE Stop: 07/31/18 22:27 Last Admin: 07/31/18 22:27 Dose: 45 ml Sodium Chloride (Normal Saline 0.9%) 1,000 mls @ 150 mls/hr IV CONT FLOR Last Infusion: 07/31/18 23:10 Dose: 150 mls/hr Admin: 07/31/18 20:55 Dose: 150 mls/hr Metoclopramide HCl (Reglan) 10 mg PO NOW ONE Stop: 07/31/18 20:43 Last Admin: 07/31/18 21:03 Dose: 10 mg Morphine Sulfate (Morphine) 2 mg IV NOW ONE Stop: 07/31/18 21:55 Last Admin: 07/31/18 22:02 Dose: 2 mg Ranitidine HCl (Zantac) 150 mg PO NOW ONE Stop: 07/31/18 22:51 Last Admin: 07/31/18 22:59 Dose: 150 mg Vital Signs - 8 hr 07/31/18 20:10 07/31/18 22:50 Temperature 97.1 F L Pulse Rate 71 67 Respiratory Rate 20 14 Blood Pressure 113/71 Blood Pressure [Right Arm] 112/57 L Pulse Oximetry 100 100 MDM - Abdominal Pain <Mariam Blanchard WELDER TACK - Last Filed: 07/31/18 23:36> Medical Records Attestation: I reviewed the patient's medical records. Lab Data Attestation: I reviewed the patient's lab results. Result diagrams: 07/31/18 20:50 07/31/18 20:50 Lab Results 07/31/18 07/31/18 07/31/18 Range/Units 20:50 20:50 20:50 WBC 7.9 (4.5-11.0) X10^3/uL RBC 3.95 L (4.0-5.2) X10^6/uL Hgb 12.5 (12.0-16.0) g/dL Hct 36.9 (36-46) % MCV 93.3 (80-100) fL MCH 31.6 (26-34) PG MCHC 33.9 (30-36) % RDW 13.2 (11.6-14.8) % Plt Count 269 (150-400) X10^3/uL Neut % (Auto) 59.6 (50-75) % Lymph % (Auto) 28.2 (25-40) % [place] % (Auto) 8.8 (3-14) % Eos % (Auto) 2.5 (2-4) % Baso % (Auto) 0.9 (0-2) % Neut # (Auto) 4700 (3003-1902) /uL Lymph # (Auto) 2200 (9602-5683) /uL [place] # (Auto) 700 (0-900) /uL Eos # (Auto) 200 (0-450) /uL Baso # (Auto) 100 (0-100) /uL Sodium 140 (137-145) mmol/L Potassium 4.9 (3.4-5.1) mmol/L Chloride 101 (98-107) mmol/L Carbon Dioxide 32 (22-32) mmol/L BUN 13 (7-17) mg/dL Creatinine 0.80 (0.52-1.04) mg/dL Estimated GFR > 60.0 (>60) mL/min BUN/Creatinine Ratio 16.3 (6-22) Glucose 91 (70-100) mg/dL Calcium 9.5 (8.4-10.2) mg/dL Total Bilirubin 0.3 (0.2-1.3) mg/dL AST 23 (14-36) IU/L ALT 15 (9-52) IU/L Alkaline Phosphatase 91 (38-126) U/L Total Protein 7.3 (6.3-8.2) g/dL Albumin 4.2 (3.5-5.0) g/dL Globulin 3.1 (1.7-4.1) g/dL Albumin/Globulin Ratio 1.4 (1.0-2.8) Amylase 67 (30-110) U/L Lipase 79 (23-300) U/L Imaging Data CT scan - abdomen: Radiologist's impression: [place] [address] CT Scan Report Signed Patient: Daniela Vee [facility]#: [id number] : 1985Acct:[id number] Age/Sex: 33 / FDate of Service: 07/31/18 Loc: ED Accession Number: [id number] Procedure: CT abdomen pelvis w con Ordering Provider: Mariam Blanchard PROCEDURE: CT ABDOMEN PELVIS W CON INDICATIONS: Post-op cholecystectomy, severe epigastric pain. TECHNIQUE: After the administration of intravenous contrast, 5 mm thick sections acquired from the diaphragm to the symphysis. 5 mm coronal and sagittal reformats were acquired. For radiation dose reduction, the following was used: automated exposure control, adjustment of mA and/or kV according to patient size. COMPARISON: [facility], , ABDOMEN LIMITED, 07/16/2018, 1:29. FINDINGS: Image quality: Excellent. ABDOMEN: Lung bases: Lung bases are clear. Heart size is normal. Solid organs: Liver is normal in size and enhancement. Note is made of mild edema along the portal triads bilaterally, slightly greater on the right than the left. Gas within what appears to be the bile ducts is present predominantly at the left medial and lateral hepatic segments. The portal veins and hepatic arteries appear patent. Gallbladder has been resected, and surgical clips are seen at the right upper quadrant. What appears to be a gas-filled possible duodenal diverticulum is relatively small, noninflamed, and measures up to 1.4 cm in diameter. This is near the duodenal bulb. Biliary system is non dilated. Pancreas enhances normally. Spleen is normal in size and enhancement. No adrenal nodules. Kidneys demonstrate normal size and enhancement, without hydronephrosis. Peritoneum and bowel: Bowel loops demonstrate normal wall thickness and c aliber. No free fluid or air. Nodes and vessels: No retroperitoneal or mesenteric adenopathy by size criteria. Aorta and inferior vena cava are normal in size. Miscellaneous: No ventral hernias. PELVIS: Genitourinary: Bladder wall thickness is normal. Miscellaneous: No inguinal hernias or adenopathy. Bones: No suspicious bony lesions. No vertebral body compression fractures. IMPRESSION: Cholecystectomy, mild postoperative edema along the gallbladder fossa region. Mild pneumobilia, mild edema involves the portal triads within the right hepatic lobe more prominently than on the left. No hemorrhage is seen, no bile leak is suspected. A definite source of severe abdominal pain postoperatively is not found. Dictated by: Isiah Levy M.D. on 07/31/2018 at 21:59 Approved by: Isiah Levy M.D. on 07/31/2018 at 22:05 [facility] Narrative Medical decision making narrative: I suspect that patient's symptoms are caused from acid reflux, due to normal labs, and no acute changes on the CT, as well as relief of symptoms with GI cocktail. Discussed findings with Dr. Snider at [facility] who agreed with discharge plan of care. Strict return precautions given. Follow up instructions discussed. <Amadou Tineo, DO - Last Filed: 07/31/18 23:49> Lab Data Lab Results 07/31/18 07/31/18 07/31/18 Range/Units 20:50 20:50 20:50 WBC 7.9 (4.5-11.0) X10^3/uL RBC 3.95 L (4.0-5.2) X10^6/uL Hgb 12.5 (12.0-16.0) g/dL Hct 36.9 (36-46) % MCV 93.3 (80-100) fL MCH 31.6 (26-34) PG MCHC 33.9 (30-36) % RDW 13.2 (11.6-14.8) % Plt Count 269 (150-400) X10^3/uL Neut % (Auto) 59.6 (50-75) % Lymph % (Auto) 28.2 (25-40) % [place] % (Auto) 8.8 (3-14) % Eos % (Auto) 2.5 (2-4) % Baso % (Auto) 0.9 (0-2) % Neut # (Auto) 4700 (1013-2951) /uL Lymph # (Auto) 2200 (1049-6776) /uL [place] # (Auto) 700 (0-900) /uL Eos # (Auto) 200 (0-450) /uL Baso # (Auto) 100 (0-100) /uL Sodium 140 (137-145) mmol/L Potassium 4.9 (3.4-5.1) mmol/L Chloride 101 (98-107) mmol/L Carbon Dioxide 32 (22-32) mmol/L BUN 13 (7-17) mg/dL Creatinine 0.80 (0.52-1.04) mg/dL Estimated GFR > 60.0 (>60) mL/min BUN/Creatinine Ratio 16.3 (6-22) Glucose 91 (70-100) mg/dL Calcium 9.5 (8.4-10.2) mg/dL Total Bilirubin 0.3 (0.2-1.3) mg/dL AST 23 (14-36) IU/L ALT 15 (9-52) IU/L Alkaline Phosphatase 91 (38-126) U/L Total Protein 7.3 (6.3-8.2) g/dL Albumin 4.2 (3.5-5.0) g/dL Globulin 3.1 (1.7-4.1) g/dL Albumin/Globulin Ratio 1.4 (1.0-2.8) Amylase 67 (30-110) U/L Lipase 79 (23-300) U/L Discharge Plan Departure Patient Disposition: Home Clinical Impression: Acid reflux Qualifiers: Esophagitis presence: esophagitis presence not specified Qualified Code(s): K21.9 - Gastro-esophageal reflux disease without esophagitis Discharge Date/Time: 07/31/18 23:10 Interventions: ED Discharge Assessment Last Done: 07/31/18 23:09 Instructions: DI for Gastroesophageal Reflux Disease (GERD) Activity Restrictions/Additional Instructions: Thank you for the entrusting me with your care today. As discussed, your labs are normal and your CT showed inflammation that is normal after surgery but no acute findings for your epigastric pain. After talking with the surgeon, we think the pain may be caused from acid reflux. It takes a while for the esomeprazole to work. Please continue to take this as directed. You may take ranitidine 150 mg 2 times a day as well as TUMS as needed for pain, these medications are [id number].. Decrease intake of chocolate, caffeine, and spicy foods as this could aggravate her symptoms. I recommend scheduling a follow-up appointment with your surgeon in the coming week. Prescriptions: No Action fluoxetine 40 mg capsule 40 mg PO DAILY RF: 0 <Amadou Tineo DO - Last Filed: 07/31/18 23:49> [facility] Attestation: I was available for consultation during this patient's emergency department encounter
[2018-07-31] MEDS: SODIUM CHLORIDE 0.9% 1,000 ML 150 ML IV (20:55)
[2018-07-31 21:00] LABS: Add Manual Diff / Slide Review NO; Basophils Absolute Auto 100 /uL (0-100); Basophils Percent Auto 0.9 % (0-2); Eosinophils Absolute Auto 200 /uL (0-450); Eosinophils Percent Auto 2.5 % (2-4); Hematocrit 36.9 % (36-46); Hemoglobin 12.5 g/dL (12.0-16.0); Lymphocytes Absolute Auto 2200 /uL (1100-4500); Lymphocytes Percent Auto 28.2 % (25-40); Mean Corpuscular HGB Conc 33.9 % (30-36); Mean Corpuscular Hemoglobin 31.6 PG (26-34); Mean Corpuscular Volume 93.3 fL (80-100); Monocytes Absolute Auto 700 /uL (0-900); Monocytes Percent Auto 8.8 % (3-14); Neutrophils Absolute Auto 4700 /uL (1500-7000); Neutrophils Percent Auto 59.6 % (50-75); Platelet Count 269 X10^3/uL (150-400); Red Blood Cell Count 3.95 X10^6/uL (4.0-5.2); Red Cell Distribution Width 13.2 % (11.6-14.8); White Blood Cell Count 7.9 X10^3/uL (4.5-11.0)
[2018-07-31] MEDS: METOCLOPRAMIDE HCL 10 MG TABLET PO (21:03)
[2018-07-31 21:11] LABS: Alanine Aminotransferase 15 IU/L (9-52); Albumin 4.2 g/dL (3.5-5.0); Albumin Globulin Ratio 1.4 (1.0-2.8); Alkaline Phosphatase 91 U/L (38-126); Aspartate Aminotransferase 23 IU/L (14-36); BUN Creatinine Ratio 16.3 (6-22); Bilirubin Total 0.3 mg/dL (0.2-1.3); Blood Urea Nitrogen 13 mg/dL (7-17); Calcium 9.5 mg/dL (8.4-10.2); Carbon Dioxide 32 mmol/L (22-32); Chloride 101 mmol/L (98-107); Estimated Glomerular Filt Rate > 60.0 mL/min (>60); Globulin 3.1 g/dL (1.7-4.1); Glucose 91 mg/dL (70-100); HEMOLYSIS 19 (0-50); Lipase 79 U/L (23-300); Potassium 4.9 mmol/L (3.4-5.1); Sodium 140 mmol/L (137-145); Total Protein 7.3 g/dL (6.3-8.2)
--- NOTE | 2018-07-31 21:19 | DI.CT.S_ITS ---
PROCEDURE: CT ABDOMEN PELVIS W CON INDICATIONS: Post-op cholecystectomy, severe epigastric pain. TECHNIQUE: After the administration of intravenous contrast, 5 mm thick sections acquired from the diaphragm to the symphysis. 5 mm coronal and sagittal reformats were acquired. For radiation dose reduction, the following was used: automated exposure control, adjustment of mA and/or kV according to patient size. COMPARISON: [facility], , ABDOMEN LIMITED, 07/16/2018, 1:29. FINDINGS: Image quality: Excellent. ABDOMEN: Lung bases: Lung bases are clear. Heart size is normal. Solid organs: Liver is normal in size and enhancement. Note is made of mild edema along the portal triads bilaterally, slightly greater on the right than the left. Gas within what appears to be the bile ducts is present predominantly at the left medial and lateral hepatic segments. The portal veins and hepatic arteries appear patent. Gallbladder has been resected, and surgical clips are seen at the right upper quadrant. What appears to be a gas-filled possible duodenal diverticulum is relatively small, noninflamed, and measures up to 1.4 cm in diameter. This is near the duodenal bulb. Biliary system is non dilated. Pancreas enhances normally. Spleen is normal in size and enhancement. No adrenal nodules. Kidneys demonstrate normal size and enhancement, without hydronephrosis. Peritoneum and bowel: Bowel loops demonstrate normal wall thickness and caliber. No free fluid or air. Nodes and vessels: No retroperitoneal or mesenteric adenopathy by size criteria. Aorta and inferior vena cava are normal in size. Miscellaneous: No ventral hernias. PELVIS: Genitourinary: Bladder wall thickness is normal. Miscellaneous: No inguinal hernias or adenopathy. Bones: No suspicious bony lesions. No vertebral body compression fractures. IMPRESSION: Cholecystectomy, mild postoperative edema along the gallbladder fossa region. Mild pneumobilia, mild edema involves the portal triads within the right hepatic lobe more prominently than on the left. No hemorrhage is seen, no bile leak is suspected. A definite source of severe abdominal pain postoperatively is not found. Dictated by: Isiah Levy M.D. on 07/31/2018 at 21:59 Approved by: Isiah Levy M.D. on 07/31/2018 at 22:05
[2018-07-31 21:33] LABS: Amylase 67 U/L (30-110)
[2018-07-31] MEDS: MORPHINE 2 MG/ML INJ IV (22:02)
[2018-07-31] MEDS: MAG HYDROX/ALUMINUM/SIMETH SUS 20 ML, LIDOCAINE VISCOUS 2% 15 ML PO (22:27)
[2018-07-31 22:50] VITALS: BP 112/57; PULSE 67; RESP 14; O2SAT 100
== END 2018-07-31 23:10 | disposition home or self-care (01) ==
PROVIDERS: Emergency Provider Nurse Practitioner
DX: K21.9 Gastro-esophageal reflux disease without esophagitis (principal); Z90.49 Acquired absence of other specified parts of digestive tract
CPT/HCPCS: 36591; 74177; 80053; 82150; 83690; 85025; 96361; 96374; 99283; 99284; J2270; Q9967

== ENCOUNTER 2018-08-05 20:48 | Emergency (ER) | payer OTHER, SELFPAY ==
[2018-08-05 20:58] VITALS: BP 114/72; PULSE 74; RESP 18; TEMP 36.8; O2SAT 98; BMI 23.6
--- NOTE | 2018-08-05 21:43 | ED_ITS ---
HPI - Wound/Laceration <Prabha Cheng PA-C - Last Filed: 08/05/18 22:11> General Chief Complaint: Wound/Laceration Stated Complaint: recent surgery states wound re opened and draining Time Seen by Provider: 08/05/18 21:13 Source: patient Mode of arrival: ambulatory Limitations: no limitations History of Present Illness HPI narrative: This 33-year-old female comes to ED secondary to concern for postoperative wound infection. She states that about 2 weeks ago, she had a choledochal cyst removed along with her gallbladder and bile duct. This was and open surgery. She states that her skin has been irritated from the glue, but was healing well when she went in for her 2 week followup last Monday. She states last night, she rubbed the area because it was itching and noted some ma lodorous green pus from 1 of the ends of the incision at looked open a little bit. She states normally this will drain some nonmalodorous yellow fluid that had not noticed anything like this before. She states that she scrubbed the wound and showered, today she has not seen any drainage or opening (she thought she saw some black material there yesterday). She has not had any fever, no new pain or, no increased redness today. She states she is feeling otherwise well but thought she should have this checked. Related Data Home Medications Medication Instructions Recorded Confirmed fluoxetine 40 mg PO DAILY 07/16/18 07/16/18 Previous Rx's Medication Instructions Recorded cephalexin [Keflex] 500 mg PO Q6H 7 Days #28 cap 08/05/18 Allergies Allergy/AdvReac Type Severity Reaction Status Date / Time No Known Drug Allergies Allergy Verified 08/05/18 21:03 Review of Systems <Prabha Cheng PA-C - Last Filed: 08/05/18 22:11> Review of Systems ROS Unobtainable: All systems reviewed & are unremarkable except as noted in HPI and below PFSH <Prabha Cheng PA-C - Last Filed: 08/05/18 22:11> Medical History Acid reflux (Chronic) Surgical History (Updated 08/05/18 @ 21:41 by Prabha Cheng PA-C) History of cholecystectomy (Resolved) Status post (Resolved) Status post hysterectomy (Resolved) Social History Smoking Status: Current every day smoker Social History Smoking Status: Current every day smoker Exam <Prabha Cheng PA-C - Last Filed: 08/05/18 22:11> Narrative Exam Narrative: GENERAL APPEARANCE: Patient sitting comfortably, in no distress. LUNGS: Clear to auscultation bilaterally. HEART: Rate and rhythm regular without murmur, normal S1 and S2, no S3 or S4. ABDOMEN: Soft, nontender, nondistended, +bowel sounds x4 quadrants DERMATOLOGIC: Right upper quadrant surgical wound is clean, dry, intact, pink over the wounds with minimal induration, no erythema, no tenderness, no warmth to touch. No frankly open areas, unable to express any drainage. Skin is dry and somewhat flaky Initial Vital Signs Initial Vital Signs: Vital Signs Temperature 98.3 F 08/05/18 20:58 Pulse Rate 74 08/05/18 20:58 Respiratory Rate 18 08/05/18 20:58 Blood Pressure 114/72 08/05/18 20:58 Pulse Oximetry 98 08/05/18 20:58 <Kareem Batista DO - Last Filed: 08/06/18 03:26> Initial Vital Signs Initial Vital Signs: Vital Signs Temperature 98.3 F 08/05/18 20:58 Pulse Rate 74 08/05/18 20:58 Respiratory Rate 18 08/05/18 20:58 Blood Pressure 114/72 08/05/18 20:58 Pulse Oximetry 98 08/05/18 20:58 Course <Prabha Cheng PA-C - Last Filed: 08/05/18 22:11> Vital Signs - 8 hr 08/05/18 20:58 08/05/18 21:51 Temperature 98.3 F Pulse Rate 74 60 Respiratory Rate 18 16 Blood Pressure 114/72 Blood Pressure [Left Arm] 98/80 Pulse Oximetry 98 99 <DO Ari León Last Filed: 08/06/18 03:26> Vital Signs - 8 hr 08/05/18 20:58 08/05/18 21:51 Temperature 98.3 F Pulse Rate 74 60 Respiratory Rate 18 16 Blood Pressure 114/72 Blood Pressure [Left Arm] 98/80 Pulse Oximetry 98 99 Discharge Plan Departure Patient Disposition: Home Clinical Impression: Postoperative external wound disruption Qualifiers: Encounter type: initial encounter Qualified Code(s): T81.31XA - Disruption of external operation (surgical) wound, not elsewhere classified, initial encounter Discharge Date/Time: 08/05/18 22:02 Interventions: ED Discharge Assessment Last Done: 08/05/18 22:02 Instructions: How to Care for a Surgical Wound Activity Restrictions/Additional Instructions: Please return as we talked about if you have any acutely worsening symptoms, i.e. rapidly spreading redness, draining pus, new fever, swelling or pain. Otherwise, please continue to monitor as this wound does not look infected today. It appears to be healing well, however it could become infected from scratching for example. This is common when healing wounds start to become itchy (people often inadvertently scratch in their sleep). Please put on a cold pack if you are itchy. Keep the wound covered at night. When you are relaxing at home, please keep open to air. I have given you a prescription for cephalexin to fill if you feel like this is worse again tomorrow at or it starts draining pus, but you do not appear to need an antibiotic now. Please recheck with your PCP in a few days. Prescriptions: New cephalexin [Keflex] 500 mg capsule 500 mg PO Q6H 7 Days Qty: 28 RF: 0 No Action fluoxetine 40 mg capsule 40 mg PO DAILY RF: 0 [facility]: [facility] Snider [facility]Other[facility]] <Kareem Batista DO - Last Filed: 08/06/18 03:26> [facility] ED Attending Trupti Attestation: I was immediately available in the department for consultation. Documentation has been reviewed. I agree with assessment and plan.
[2018-08-05 21:51] VITALS: BP 98/80; PULSE 60; RESP 16; O2SAT 99
== END 2018-08-05 22:02 | disposition home or self-care (01) ==
PROVIDERS: Emergency Provider Internal Medicine
DX: T81.31XA Disruption of external operation (surgical) wound, not elsewhere classified, initial encounter (principal)
CPT/HCPCS: 99282; 99283